=== PATIENT | female | born 1975 | race Two or more races ===

== ENCOUNTER 2016-04-04 17:50 | Emergency (ER) | payer MEDICAID ==
[2016-04-04 18:03] VITALS: RESP 16; O2SAT 97
--- NOTE | 2016-04-04 18:23 | EDPHY ---
H & P Stated Complaint: brown vag dc after + home preg test 2 weeks ago, cramping HPI/ROS: CHIEF COMPLAINT: Vaginal bleeding, positive test HISTORY OF PRESENT ILLNESS: female with vaginal bleeding intermittently this week. She has a last menstrual period of February 13. She did not start as scheduled and she is very regular. positive home test x2 last Wednesday the . She had some mild spotting on Wednesday that went away. No cramps or pain throughout that. Yesterday though the vaginal bleeding returned. It was [id number] bleeding with some brown discharge with her. No vaginal pain. No flank pain. No abdominal pain but she did have some pelvic cramping. No fevers or chills. Some vomiting. No dyspareunia. One miscarriage for 4th , but no bleeding or complications otherwise In remaining pregnancies. She has a caramel maker at [facility], Dr. Coulter. She sees her every 2 years due to abnormal Pap smears. No anticoagulants. No other associated complaints or modifying factors. All information obtained with the hospital [employer] foreign language tutor. REVIEW OF SYSTEMS: Ten systems reviewed and are negative unless otherwise noted in the HPI EXAMINATION: General Appearance: Alert, no distress Head: normocephalic, atraumatic Eyes: Pupils equal and round, no conjunctival pallor or injection ENT, Mouth: Mucous membranes moist . Uvula midline. Neck: Normal inspection, supple, non-tender Respiratory: Lungs are clear to auscultation Cardiovascular: Regular rate and rhythm . No murmur. pulses intact distally Gastrointestinal: Abdomen is soft and nontender. No tympany. No rigidity. no CVA tenderness. Non-acute abdomen. : Pelvic exam deferred by patient. Neurological: A&O, nonfocal, Strength is symmetric in all limbs Skin: Warm and dry, no rash Extremities: Nontender, no pedal edema Psychiatric: Mood and affect normal DIFFERENTIAL DIAGNOSES: Including but not limited to that miscarriage, inevitable miscarriage, missed , demise, subchorionic hemorrhage, vaginal bleeding MDM: 6:20 p.m. vaginal bleeding in a patient with positive past. She had 2 positive test last Wednesday, making her approximately 5-6 weeks . Bleeding is minimal. Vital signs are stable. Examination is benign involving the abdomen. She is understandably concerned and upset about this but reasonable. Laboratory studies have been ordered. Will also obtain an OB ultrasound. Patient and spouse are comfortable with our plan. She is in no acute distress. 8:20 p.m. discussed the ultrasound findings with the radiologist. They are as noted in the report. Indicates that this may be a nonviable , but given current criteria unable to make that determination by this study. Recommend follow-up ultrasound in 7-10 days. No other acute findings on the ultrasound. I did discuss this with the patient with the use of a [employer] high school foreign language tutor. We discussed pelvic rest, follow up with her vice president [employer] this week during her appointment that she has on , Return to the emergency department for fever, worsening pain, bleeding greater than 1 pad per hour. Patient voiced her understanding of this and will be discharged home in stable condition. ED Precautions: Worsening pain. Fever. Bloody stools. Bloody emesis. Constipation or diarrhea. SUPERVISION: This patient was independently evaluated without the aide of supervising physician. Source: Patient, Family, [employer] Exam Limitations: No limitations - Personal History LMP (Females 10-55): Over 28 Days Ago Current Tetanus/Diphtheria Vaccine: Unsure Current Tetanus Diphtheria and Acellular Pertussis (TDAP): Unsure - Medical/Surgical History Hx Asthma: No Hx Chronic Respiratory Disease: No Hx Diabetes: No Hx Cardiac Disease: No Hx Renal Disease: No Hx Cirrhosis: No Hx Alcoholism: No Hx HIV/AIDS: No Hx Splenectomy or Spleen Trauma: No Other PMH: PSH: caitlyn;. PMH: gest DM; - Social History Smoking Status: Never smoked Constitutional: Initial Vital Signs Temperature (C) 97.7 F 04/04/16 17:59 Respiratory Rate 16 04/04/16 17:59 Blood Pressure 112/47 L 04/04/16 17:59 O2 Sat (%) 97 04/04/16 17:59 O2 Delivery Mode Room Air Allergies/Adverse Reactions: No Known Allergies Allergy (Unverified 09/17/09 15:52) Home Medications: Medication Instructions Recorded NK [No Known Home Meds] 04/04/16 Medical Decision Making - Data Points Laboratory Results: Laboratory Results 04/04/16 18:35 04/04/16 18:35 04/04/16 04/04/16 18:35 18:00 WBC 9.09 10^3/uL (3.80-9.50) RBC 4.67 10^6/uL (4.18-5.33) Hgb 12.2 L g/dL (12.6-16.3) Hct 36.6 L % (38.0-47.0) MCV 78.4 L fL (81.5-99.8) MCH 26.1 L pg (27.9-34.1) MCHC 33.3 g/dL (32.4-36.7) RDW 14.6 % (11.5-15.2) Plt Count 333 10^3/uL (150-400) MPV 9.0 fL (8.7-11.7) Neut % (Auto) 60.0 % (39.3-74.2) Lymph % (Auto) 30.7 % (15.0-45.0) [place] % (Auto) 6.9 % (4.5-13.0) Eos % (Auto) 1.9 % (0.6-7.6) Baso % (Auto) 0.3 % (0.3-1.7) Nucleat RBC Rel Count 0.0 % (0.0-0.2) Absolute Neuts (auto) 5.45 10^3/uL (1.70-6.50) Absolute Lymphs (auto) 2.79 10^3/uL (1.00-3.00) Absolute Monos (auto) 0.63 10^3/uL (0.30-0.80) Absolute Eos (auto) 0.17 10^3/uL (0.03-0.40) Absolute Basos (auto) 0.03 10^3/uL (0.02-0.10) Absolute Nucleated RBC 0.00 10^3/uL (0-0.01) Immature Gran % 0.2 % (0.0-1.1) Immature Gran # 0.02 10^3/uL (0.00-0.10) PT 13.1 SEC (12.0-15.0) INR 1.00 (0.83-1.16) APTT 28.1 SEC (23.0-38.0) Sodium 139 mEq/L (134-144) Potassium 4.4 mEq/L (3.5-5.2) Chloride 106 mEq/L (97-110) Carbon Dioxide 20 L mEq/l (22-31) Anion Gap 13 mEq/L (8-16) BUN 15 mg/dL (7-23) Creatinine 0.7 mg/dL (0.6-1.0) Estimated GFR > 60 Glucose 117 H mg/dL (70-100) Calcium 9.2 mg/dL (8.5-10.4) Beta HCG, Qual POSITIVE Beta HCG, Quant 8000.50 H mIU/mL (0-4.83) Urine Color YELLOW Urine Appearance HAZY Urine pH 5.0 (5.0-7.5) Ur Specific [place] 1.031 H (1.002-1.030) Urine Protein NEGATIVE (NEGATIVE) Urine Ketones NEGATIVE (NEGATIVE) Urine Blood 3+ H (NEGATIVE) Urine Nitrate NEGATIVE (NEGATIVE) Urine Bilirubin NEGATIVE (NEGATIVE) Urine Urobilinogen NEGATIVE EU (0.2-1.0) Ur Leukocyte Esterase 1+ H (NEGATIVE) Urine RBC 3-5 H /hpf (0-3) Urine WBC 15-25 H /hpf (0-3) Ur Epithelial Cells 1+ /lpf (NONE-1+) Urine Bacteria 2+ H /hpf (NONE SEEN) Urine Mucus 1+ /lpf (NONE-1+) Ur Culture Indicated? INDICATED H (NI) Urine Glucose NEGATIVE (NEGATIVE) Patient ABO/Rh O POSITIVE Medications Given: Discontinued Medications Ceftriaxone Sodium/Dextrose (Rocephin 1 Gm (Premix)) 50 mls @ 100 mls/hr IV EDNOW ONE PRN Reason: Protocol Stop: 04/04/16 19:38 Last Admin: 04/04/16 19:19 Dose: 50 mls Departure - Departure Disposition: Home, Routine, Self-Care Clinical Impression: Threatened miscarriage in early , Vaginal bleeding before 22 weeks gestation Condition: Good Instructions: Threatened Miscarriage (ED) Additional Instructions: Follow up with caramel maker during your already scheduled appointment on . Recommend repeat ultrasound in 7-10 days from today. Return to the ER as needed as discussed. Referrals: Ranjana Coulter MD [Primary Care Provider] - As per Instructions Print Language: Japanese
[2016-04-04 18:44] LABS: % IMMATURE GRANULYOCYTES 0.2 % (0.0-1.1); ABSOLUTE IMMATURE GRANULOCYTES 0.02 10^3/uL (0.00-0.10); ADD DIFF? NO; ADD MORPH? NO; ADD SCAN? NO; ATYPICAL LYMPHOCYTE FLAG 10 (0-99); FRAGMENT RBC FLAG 0 (0-99); HEMATOCRIT 36.6 % (38.0-47.0); HEMOGLOBIN 12.2 g/dL (12.6-16.3); LEFT SHIFT FLG 0 (0-99); LIPEMIA HEMOLYSIS FLAG 80 (0-99); MEAN CELL HEMOGLOBIN 26.1 pg (27.9-34.1); MEAN CELL HEMOGLOBIN CONCENTR. 33.3 g/dL (32.4-36.7); MEAN CELL VOLUME 78.4 fL (81.5-99.8); PLATELET CLUMPS FLAG 0 (0-99); PLATELET COUNT 333 10^3/uL (150-400); RED BLOOD CELL COUNT 4.67 10^6/uL (4.18-5.33); RED CELL DISTRIBUTION WIDTH 14.6 % (11.5-15.2)
[2016-04-04 18:49] LABS: COLOR YELLOW; LEUKOCYTE ESTERASE,URINE 1+ (NEGATIVE); NITRITE,URINE NEGATIVE (NEGATIVE)
[2016-04-04 18:52] LABS: BACTERIA 2+ /hpf (NONE SEEN); MUCUS 1+ /lpf (NONE-1+); WBC,URINE 15-25 /hpf (0-3)
[2016-04-04 18:53] LABS: APTT 28.1 SEC (23.0-38.0); PROTIME(PATIENT) 13.1 SEC (12.0-15.0)
[2016-04-04 19:00] LABS: ANION GAP 13 mEq/L (8-16); CALCIUM 9.2 mg/dL (8.5-10.4); CARBON DIOXIDE 20 mEq/l (22-31); CHLORIDE 106 mEq/L (97-110); CREATININE 0.7 mg/dL (0.6-1.0); GLOMERULAR FILTRATION RATE > 60; GLUCOSE 117 mg/dL (70-100); POTASSIUM 4.4 mEq/L (3.5-5.2); SODIUM 139 mEq/L (134-144)
[2016-04-04 19:52] VITALS: BP 109/57; PULSE 67
--- NOTE | 2016-04-04 20:20 | US ---
First Trimester Obstetrical Sonography Clinical History: 41-year-old female with advanced maternal age presenting to the ED seven weeks preg nant by LMP, and bleeding. Confirm viability. Technique: A curvilinear 5-MHz transducer was used to sonographically evaluate the pelvis, although the urinary bladder was not adequately distended. Supplementary endovaginal pelvic sonography was al so performed. The exam was somewhat limited secondary to the patient's body habitus. Cine clips wer e obtained at the level of the embryonic pole. M-mode Doppler was used, and color and spectral Doppl er of the maternal adnexal regions was performed. Comparison Study: None from the current . LMP: February 14, 2016, indicating an age of 7 weeks, 1 day, and an estimated date of delivery of 2016. Findings: The uterus measures 11.3 x 6.6 x 8.9 cm. There is endometrial thickening, and there is an oval-shaped anechoic gestational sac seen to the right of midline within the endometrium, measuring 1.4 x 0.8 x 1.3 cm (mean sac diameter of 11.6 mm).* There is a 4.3 mm embryonic pole, which would co rrespond to an age of 6 weeks, 1 day; however, no heart tones are identified. There was no col or Doppler identified within the gestational sac. There is no focal fibroid or subchorionic hemorrha ge. The maternal right ovary measures 3.2 x 4.0 x 2.2 cm, and contains a 1.7 x 1.5 x 1.4 cm anechoic corpus luteum cyst. Intraovarian vascular flow is documented, with a resistive index of 0.55. The left ovary was seen transabdominally, measuring 2.8 x 2.7 x 1.8 cm, and intraovarian vascular flow is documented, with a resistive index of 0.65. *GUIDELINES FOR TRANSVAGINAL ULTRASONOGRAPHY DIAGNOSIS OF FAILURE IN A WOMAN WITH AN INTRAU TERINE OF UNCERTAIN VIABILITY: With a crown-rump length of less than 7 mm and no hea rt tones, it is suspicious for but not diagnostic of failure, and follow-up sonography in 7 -10 days is recommended to assess the for viability, as recommended by the Society of [employer] logists in Ultrasound Multispecialty Consensus Conference (November 2011). Impression: viability cannot be confirmed at this point, and findings are suspicious for but n ot diagnostic of failure. Repeat sonography in 7-10 days is therefore recommended. Results were called to Kendall White PA-C. A test result has been communicated to a licensed care provider and documented in the [email or web address] Critical Result system on 04/04/2016 19:58, Message ID [id number]. E:[email or web address]
[2016-04-04] MEDS ORDERED: NITROFURANTOIN 100MG PREPACK#2 BTL TAKEHOME ONE (20:22)
[2016-04-04 20:37] VITALS: TEMP 97.9
== END 2016-04-04 20:37 | disposition home or self-care (01) ==
DX: O20.0 Threatened abortion (principal); Z3A.01 Less than 8 weeks gestation of pregnancy
CPT/HCPCS: 96365; J0696

== ENCOUNTER → 2018-01-31 | Outpatient (CLI) | payer MEDICAID | LOC: FIMAGING 12:14 | PROVIDERS: ATTEND Family Medicine | DX: O09.522 Supervision of elderly multigravida, second trimester (principal); Z3A.21 21 weeks gestation of pregnancy ==

== ENCOUNTER → 2018-03-08 | Outpatient (CLI) | payer MEDICAID | LOC: FIMAGING 14:38 | PROVIDERS: ATTEND Family Medicine | DX: O09.522 Supervision of elderly multigravida, second trimester (principal); Z3A.26 26 weeks gestation of pregnancy ==

== ENCOUNTER → 2018-04-19 | Outpatient (CLI) | payer MEDICAID | LOC: FIMAGING 14:24 | PROVIDERS: ATTEND Family Medicine | DX: O09.523 Supervision of elderly multigravida, third trimester (principal); Z3A.32 32 weeks gestation of pregnancy ==